=== PATIENT | male | born 1970 | race Caucasian/White ===

== ENCOUNTER 2022-10-29 11:02 | Emergency (ER) | payer MEDICAID ==
[~2022-10-29] VITALS: Ht 177.8 cm; Wt 100.0 kg
[2022-10-29] MEDS ORDERED: HYDROCODONE/ACETAMINOPHEN 5/325MG TABLET PO ONE (11:45)
[2022-10-29] MEDS ORDERED: PROPOFOL 200MG/20ML VIAL IV ONE (13:30)
[2022-10-29] MEDS ORDERED: KETAMINE HCL 50 MG/ML 10ML IV ONE (13:30)
[2022-10-29] MEDS: HYDROCODONE/ACETAMINOPHEN 5/325MG TABLET PO NR ×2 (14:51→16:25)
[2022-10-29] MEDS ORDERED: IBUP-2029 MT (15:51)
[2022-10-29] MEDS ORDERED: HYDROCODONE/ACETAMINOPHEN 10/325MG TABLET PO ONE (16:15)
[2022-10-29 16:30] VITALS: BP 117/68
== END 2022-10-29 16:45 | disposition home or self-care (01) ==
LOC: ER 11:02
DX: S62.101A Fracture of unspecified carpal bone, right wrist, initial encounter for closed fracture (principal); V29.99XA Rider (driver) (passenger) of other motorcycle injured in unspecified traffic accident, initial encounter; Y93.89 Activity, other specified; Y92.89 Other specified places as the place of occurrence of the external cause; Y99.8 Other external cause status; Z98.890 Other specified postprocedural states
CPT/HCPCS: 25605; 71101; 73110; 73130; 73502; 99152; 99285; J2704; J3490; Z7610